=== PATIENT | female | born 1945 | race Hispanic/Latino ===

== ENCOUNTER → 2022-08-18 | Outpatient (CLI) | payer MEDICARE ==
[~2022-08-18] MED LIST: ASPIRIN EC81 MG PO; HUMALOG100 UNIT/3 SC; HYDROCODON-ACE1 EA12 PO; LISINOPRIL10 MG PO; METFORMIN HCL500 MG PO; NEURONTIN100 MG PO; SIMVASTATIN40 MG PO; TRESIBA100 UNIT/1 SC
== END ==
LOC: DX 12:27
PROVIDERS: ATTEND Internal Medicine
DX: M85.88 Other specified disorders of bone density and structure, other site (principal); S82.001A Unspecified fracture of right patella, initial encounter for closed fracture
CPT/HCPCS: 77080

== ENCOUNTER 2022-08-21 09:28 | Outpatient (RCR) | payer MEDICARE | END 2022-09-12 23:59 | disposition home or self-care (01) | LOC: PT 09:28 | PROVIDERS: ATTEND Orthopaedic Surgery Foot and Ankle Surgery | DX: S82.001D Unspecified fracture of right patella, subsequent encounter for closed fracture with routine healing (principal); M62.81 Muscle weakness (generalized); R26.89 Other abnormalities of gait and mobility; M25.561 Pain in right knee; M25.661 Stiffness of right knee, not elsewhere classified ==

== ENCOUNTER → 2024-01-07 | Day surgery (SDC) | payer MEDICARE ==
[2024-01-04 15:07] LABS: BASOPHILS # (AUTO) 0.1 (0.0-0.1); BASOPHILS % 0.8 % (0.0-1.0); EOSINOPHILS # (AUTO) 1.1 (0.0-0.4); EOSINOPHILS % 15.4 % (0.0-6.0); HEMATOCRIT 39.6 % (34.2-44.1); HEMOGLOBIN 12.5 g/dL (12.0-16.0); LYMPHOCYTES # (AUTO) 1.7 (1.0-3.2); MEAN CORPUSCULAR HEMOGLOBIN 30.3 pg (28-32); MEAN CORPUSCULAR HGB CONC 31.6 g/dL (31-35); MEAN CORPUSCULAR VOLUME 96.1 fL (81-99); MONOCYTES # (AUTO) 0.7 (0.2-0.8); MONOCYTES % 9.3 % (4.4-11.3); NEUTROPHILS # (AUTO) 3.6 (2.1-6.9); NEUTROPHILS % 50.1 % (38.7-80.0); PLATELET COUNT 238 x10e3/uL (140-360); RED BLOOD COUNT 4.12 x10e6/uL (3.6-5.1); RED CELL DISTRIBUTION WIDTH 13.2 % (11.7-14.4); WHITE BLOOD COUNT 7.21 x10e3/uL (4.8-10.8)
[2024-01-04 15:21] LABS: ANION GAP 14.3 mmol/L (8-16); CALCIUM 9.6 mg/dL (8.4-10.2); CREATININE, SERUM 0.8 mg/dL (0.57-1.11); POTASSIUM 4.3 mmol/L (3.5-5.1)
[~2024-01-07] MED LIST changes: +ACETAMINOPHEN 1000 MG/100 ML IV ONE; +AMLODIPINE BESYL5 MG PO; +CALCIUM PO; +CEFAZOLIN SODIUM 2 GM ONE; +CENTRUM SILVER1 EAC3 PO; +DEXAMETHASONE SOD PHOS INJ 4 MG/ML SDV ONE; +DEXTROSE 5% 250ML 250 ML IV ONE; +FAMOTIDINE 20 MG/2 ML VIAL IV ONE; +FENTANYL CITRATE/PF 100MCG/2 ML INJ ONE; +GINGER ROOT550 MG PO; +LIDOCAINE HCL 2% LOCAL INJ 5 ML SDV VIAL INJ ONE; +MAG GLYCINATE100 MG PO; +MIDAZOLAM HCL 2 MG/2 ML VIAL ONE; +ONDANSETRON HCL INJ 2MG/ML 2ML 2 MG/ML VIAL ONE; +PROPOFOL IV EMULSION 10 MG/ML 20 ML VIAL ONE; +SEVOFLURANE INHAL SOLN 250 ML PEN BTL ONE; +VITAMIN C500 MG PO; +VITAMIN D350 MC1 PO; +VITAMIN E400 UNI1 PO; +ZINC50 M2 PO; +ZYRTEC10 MG PO
[2024-01-07] MEDS: LACTATED RINGER'S 1,000 ML ONE (10:32)
[2024-01-07 13:51] VITALS: TEMP 97.5
[2024-01-07 14:50] VITALS: BP 121/56; PULSE 82; RESP 18; O2SAT 98
== END | disposition home or self-care (01) ==
LOC: OR 10:09
PROVIDERS: ATTEND Orthopaedic Surgery Foot and Ankle Surgery
DX: M25.761 Osteophyte, right knee (principal); Z87.81 Personal history of (healed) traumatic fracture; I10 Essential (primary) hypertension; E78.5 Hyperlipidemia, unspecified; E11.9 Type 2 diabetes mellitus without complications; G89.29 Other chronic pain; Z01.810 Encounter for preprocedural cardiovascular examination; Z01.812 Encounter for preprocedural laboratory examination; Z79.82 Long term (current) use of aspirin; Z79.4 Long term (current) use of insulin; Z79.84 Long term (current) use of oral hypoglycemic drugs; Z79.899 Other long term (current) drug therapy; Z91.81 History of falling
CPT/HCPCS: 27350; 36415 ×2; 80048; 82948; 85025; 93005; J0131; J0690; J1100; J2003; J2250; J2405; J2704; J3010; J7121

== ENCOUNTER → 2024-09-27 | Day surgery (SDC) | payer MEDICARE ==
[~2024-09-27] MED LIST changes: -ACETAMINOPHEN 1000 MG/100 ML IV ONE; +ACETAMINOPHEN-1 EAC4 PO; -CEFAZOLIN SODIUM 2 GM ONE; -DEXTROSE 5% 250ML 250 ML IV ONE; +EPHEDRINE SULFATE INJ 50 MG/ML VIAL ONE; -FAMOTIDINE 20 MG/2 ML VIAL IV ONE; +KETOROLAC TROMETHAMINE 30 MG/ML VIAL ONE; +LACTATED RINGER'S 1,000 ML ONE; -MIDAZOLAM HCL 2 MG/2 ML VIAL ONE; -SEVOFLURANE INHAL SOLN 250 ML PEN BTL ONE
== END | disposition home or self-care (01) ==
LOC: OR 05:26 → EDSTATUS 07:00
PROVIDERS: ATTEND Plastic Surgery
DX: G56.01 Carpal tunnel syndrome, right upper limb (principal); M65.921 Unspecified synovitis and tenosynovitis, right upper arm; I10 Essential (primary) hypertension; E10.9 Type 1 diabetes mellitus without complications; Z79.82 Long term (current) use of aspirin; Z79.4 Long term (current) use of insulin; Z79.84 Long term (current) use of oral hypoglycemic drugs; Z79.899 Other long term (current) drug therapy; Z01.812 Encounter for preprocedural laboratory examination; Z01.810 Encounter for preprocedural cardiovascular examination
CPT/HCPCS: 25115; 36415; 64721; 71046; 80048; 82948; 85025; 93005; J0690; J1100; J1885; J2003; J2405; J2704; J3010; J7121